=== PATIENT | female | born 1975 | race Caucasian/White ===

== ENCOUNTER 2019-04-11 12:18 | Emergency (ER) | payer MEDICAID ==
[~2019-04-11] VITALS: Ht 160 cm; Wt 93.9 kg
[~2019-04-11 12:18] MED LIST: LORA2TAB PO; OLAN10TA3 PO; OXCA150T13 PO
--- NOTE | 2019-04-11 12:30 | NUR ---
[id number], FOUND HER AT THE BUS STOP, POSSIBLE SEIZURE PER EMS, BS 137, ALTERED, UNABLE TO ANSWER QUESTIONS AT THIS TIME. CHANGED INTO GOWN, ATTACHED TO THE CHIROPRACTIC PHYSICIAN. NEEDS ATTENDED. WILL MONITOR.
[2019-04-11 12:54] LABS: BASOPHILS # (AUTO) 0.1 /CMM (0.0-0.2); BASOPHILS % (AUTO) 0.8 % (0.0-2.0); EOSINOPHILS % (AUTO) 0.9 % (0.0-6.0); HEMATOCRIT 44 % (33-45); LYMPHOCYTES # (AUTO) 2.3 /CMM (0.8-4.8); LYMPHOCYTES % (AUTO) 31.4 % (20.0-44.0); MEAN CORPUSCULAR HGB CONC 34 g/dl (31.0-36.0); MEAN CORPUSCULAR VOLUME 88 fL (82-100); MONOCYTES # (AUTO) 0.6 /CMM (0.1-1.30); MONOCYTES % (AUTO) 8.3 % (2.0-12.0); NEUTROPHILS # (AUTO) 4.4 /CMM (1.8-8.9); NEUTROPHILS % (AUTO) 58.6 % (43.0-81.0); PLATELET COUNT (AUTO) 323 /CMM (150-450); RED BLOOD CELL COUNT(AUTO) 5.04 MIL/uL (4.0-5.2); WHITE BLOOD COUNT (AUTO) 7.4 K/uL (4.3-11.0)
[2019-04-11 12:56] LABS: APPEARANCE,URINE Clear (CLEAR); BILIRUBIN,URINE SMALL (NEGATIVE); BLOOD, URINE Large Ery/uL (NEGATIVE); COLOR,URINE Yellow (YELLOW); KETONES,URINE Negative (NEGATIVE); LEUKOCYTE ESTERASE ,URINE Negative (NEGATIVE); NITRITE, URINE Negative (NEGATIVE); PH,URINE 5.5 (5.0-8.0); PROTEIN,URINE Trace mg/dl (NEGATIVE); UGLUCOSE Negative (NEGATIVE)
[2019-04-11] MEDS ORDERED: LEVETIRACETAM (500MG) 500 MG in IV NS 0.9% 100 ML IV ONE (13:00)
[2019-04-11] MEDS ORDERED: IV NS 0.9% 1,000 ML BAG IV ONE (13:00)
[2019-04-11 13:01] LABS: BACTERIA,URINE Few /HPF (None Seen); SQUAMOUS EPITHELIAL CELL,UR Few /HPF (None Seen)
[2019-04-11 13:09] LABS: CALCIUM, SERUM 9.2 mg/dL (8.5-10.1); CARBON DIOXIDE 24 mmol/L (21-32); CHLORIDE 105 mmol/L (98-107); CREATININE 0.9 mg/dL (0.6-1.3); GLUCOSE 121 mg/dL (74-106); SODIUM SERUM 140 mmol/L (136-145); UREA NITROGEN, BLOOD 8 mg/dL (7-18)
[2019-04-11 13:10] LABS: ALCOHOL, BLOOD < 3 mg/dL (0-0)
--- NOTE | 2019-04-11 15:55 | NUR ---
PATIENT ALERT AND ORIENTED X3, BREATHING EVEN AND UNLABORED, NO SOB NOTED, NEEDS ATTENDED. FOOD TRAY ORDERED. WALKER REQUESTED.
[2019-04-11 16:53] VITALS: BP 110/56
--- NOTE | 2019-04-11 16:54 | NUR ---
Patient discharged to home in stable condition. Written and verbal after care instructions given. Patient verbalizes understanding of instruction. IV removed. Catheter intact and site benign. Pressure and 4x4 applied to site. No bleeding noted.
== END 2019-04-11 16:54 | disposition home or self-care (01) ==
LOC: ER 12:18
DX: R56.9 Unspecified convulsions (principal); R51 Headache; R00.0 Tachycardia, unspecified; F12.10 Cannabis abuse, uncomplicated; F13.10 Sedative, hypnotic or anxiolytic abuse, uncomplicated; Z88.0 Allergy status to penicillin
CPT/HCPCS: 36415; 70450; 80048; 80305; 80307; 81001; 83735; 84703; 85025; 93005; 96365; 99284; J1953; J7030 ×2; 81000-TC; G0480